=== PATIENT | male | born 1960 | race Caucasian/White ===

== ENCOUNTER → 2019-06-17 | Day surgery (SDC) | payer BC ==
[~2019-06-17] MED LIST: CHILDREN'S ASPI81 M1 PO; NOHOMEMEDICATIONS; NORCO 5-325 TA1 EAC1 PO
[2019-06-17 09:01] LABS: HEMATOCRIT 40.6 % (42.0-52.0); HEMOGLOBIN 14.1 gm/dL (14.0-18.0); MCH 29.5 pg (26.0-34.0); MCHC 34.7 g/dL (28.0-37.0); MCV 85.2 fL (80.0-100.0); MPV 7.7 fl. (7.2-11.1); RBC 4.77 mil/uL (4.50-6.00); RDW-CV 14.5 % (10.5-14.5); WBC 6.3 thou/uL (4.0-11.0)
[2019-06-17 09:10] LABS: CALCIUM 8.9 mg/dL (8.5-10.1); CREATININE 0.8 mg/dL (0.6-1.3); POTASSIUM 4.1 mmol/L (3.5-5.1)
[2019-06-17 09:22] LABS: ALBUMIN 3.7 g/dL (3.4-5.0); TOTAL BILIRUBIN 0.3 mg/dL (<0.1-1.0); TOTAL PROTEIN 7.6 g/dL (6.4-8.2)
--- NOTE | 2019-06-22 09:47 | OP ---
[address] [address] OPERATIVE REPORT Name: SRAVAN RONDON Room: [facility]#: [id number] Admission: 06/17/19 Attend Phys: Brianna Mak, Discharge: Date of : 58 Report #: [id number] THIS REPORT FOR: //name// CC: [facility] physician/PCP Brianna Mak DATE OF SERVICE: 06/17/2019 SURGEON: Brianna Mak DPM. SUPERVISOR FACEPIECE LINE: None. 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 PATHOLOGY: 1. Peroneal tendon, right ankle. 2. Ganglion cyst, right ankle, soft tissue and bone sent for pathology. ANESTHESIA TYPE: General with popliteal block and local with popliteal block. HEMOSTASIS: Pneumatic thigh tourniquet set at 300 mmHg. ESTIMATED BLOOD LOSS: 10 mL. MATERIALS USED: 2-0 Prolene, 2-0 Vicryl, 4-0 Vicryl, 4-0 nylon, Arthrex 2-0 SutureTak and Arthrex cancellous DBM 3 mL. INJECTABLES: DBM. COMPLICATIONS: None. PROCEDURE IN DETAIL: The patient was brought into the operating room and placed on the operating room table in the supine position. Two grams of Ancef was then administered intravenously for prophylaxis. After adequate sedation was obtained, the patient was then placed in a lateral decubitus position with adequate padding and pillow placement. Once this was done, the pneumatic thigh tourniquet was also placed about the patient's right thigh with adequate padding noted. Once this was completed, the patient's right foot and leg were then prepped and draped in the usual aseptic fashion. Upon exsanguination of the right foot and ankle with an Esmarch bandage, the pneumatic [place] [address] OPERATIVE REPORT Name: ALCONSRAVAN Garret Room: [facility]#: [id number] Admission: 06/17/19 Attend Phys: Brianna Mak, Discharge: Date of : 58 Report #: [id number] then inflated to 300 mmHg. Attention was then directed to the lateral aspect of the patient's right ankle where an approximately 6 cm curvilinear incision was then placed approximately 1 cm just distal to the lateral malleolus coursing along and anterior to the peroneal tendons. The incision was then carried down through the subcutaneous layers utilizing a mixture of blunt and sharp dissection. It is important to note that the sural nerve was identified at this time and retracted distally. It is also important to note that there was an extensive amount of large veins throughout, where in which bleeding was controlled via cauterization as well as tying off connections utilizing silk ties. Once bleeding was controlled, at this time, further dissection down to the peroneal tendons was then performed and an incision into the peroneal sheath was done at this time. Both peroneal tendons were identified at this time and upon releasing the paratenon, an abundant amount of dhaval-colored synovial fluid escaped within the tendon as well as the large Rudolph through bucket handle tear of the peroneus brevis tendon at the level of the lateral malleolus was identified at this time. It is also important to note that there was thickening and yellow discoloration of the peroneus brevis tendon as well and this portion of the tendon was debrided away and sent for pathology for further identification at this time. Further examination of both the peroneus brevis and peroneus longus tendons, at this time, showed no further tearing or thickening at this time, so the peroneus brevis tendon was then re-tubularized utilizing 2-0 Prolene in a running suture fashion. It is also important to note that the extensor retinaculum was also released using sharp dissection during this time and allowed for the full range of motion of peroneal tendons to be tested at this time. It is also important to note that the peroneal tendons were noted to glide smoothly under the lateral malleolus at this time and the area was then flushed utilizing sterile normal saline. Next, at this time, attention was then redirected to the lateral malleolus where there was noted to have hypertrophy along the lateral aspect at this time and was noted to be uneven distribution. The periosteum along the lateral malleolus was further dissected down to fully expose the lateral and anterior portion and to allow for full extent of the bone tumor. There was mild discoloration along the hypertrophied aspect of the lateral malleolus where the bone cyst was noted to be located. So at this time, a window was then performed along the anterolateral aspect of the lateral malleolus utilizing a bone saw into the medullary canal. This bone window was then removed at this time and then utilizing a curette it was noted that the lateral wall of the lateral malleolus was significantly weakened at this time, involved the bone cyst, so this was also removed and sent for pathology for further evaluation. The contents were noted to be clear and highly viscous consistent with a ganglion cyst and this material was also curetted out and sent for gross pathology at this time. Once adequate hard viable bone was reached at this time, a bony deficit of approximately almost 2 cm in length and 1 [place] [address] OPERATIVE REPORT Name: ALCONSRAVAN Garret Room: [facility].#: [id number] Admission: 06/17/19 Attend Phys: Brianna Mak, Discharge: Date of : 58 Report #: [id number] aspect of the lateral malleolus and it is important to note that the ganglion cyst appeared to be multilobular within the lateral malleolus. Due to the extensive removal of the lateral wall, it is important to note that the posterior aspect where the peroneal tendons will be used to glide and the wall was cartilaginous and remained intact throughout. However, due to the location of the cyst and removal of the cortical wall, it was unable to use a tricortical graft and be able to fixate in place. So at this time, a cancellous DBM was then used in order to fill the void at this time and leveled out the remainder of the bone deficit. Approximately 2 mL of cancellous DBM was utilized at this time. This was allowed to set and then the site was copiously irrigated with sterile normal saline. Next, the peritenon of the peroneal tendons was then reapproximated as well as the periosteum along the lateral malleolus. It is also important to note that the SutureTak was also utilized at this time to reapproximate the extensor retinaculum. At this time, this was done approximately 1.5 cm proximal to the cystic area of the lateral cuneiform and this was performed according to product guidelines. The deep tissue structures continued to be closed utilizing 2-0 Vicryl and the skin and subcutaneous tissue reapproximated utilizing a mixture of 2-0 Vicryl, 4-0 Vicryl and a 3-0 nylon in a running interlocking stitch fashion. It is also important to note that prior two skin closures, the pneumatic ankle tourniquet was released at this time and bleeding to the site was noted to be controllable without early signs of hematoma or drainage. So at this time, the skin was then reapproximated and the right foot was then cleansed and dressed with Adaptic, 4 x 4 gauze, Kerlix and tape. The patient's right foot and ankle were then placed in a fiberglass below the knee cast in a neutral slightly everted position at the ankle to reduce tension along the peroneal tendons. The patient tolerated the procedure and anesthesia well and was transferred from the operating room to the recovery room with vital signs stable and neurovascular status intact to the right lower extremity. DISPOSITION: The patient is to be nonweightbearing for 6 weeks postoperative and was encouraged to call with any questions or concerns. The patient was also instructed to take one baby aspirin twice daily for DVT prevention. <ELECTRONICALLY SIGNED> By: Brianna Mak DPM 06/22/19 0947 [id number] [id number] Mak DPM /jayy
--- NOTE | 2019-06-22 16:06 | PATH ---
[facility] [address] [place] [address] PATHOLOGY RPT PROCEDURE Name: SRAVAN MATHEW Room: [facility]..#: [id number] Admission: 06/17/19 Date of : 58 Discharge: Report #: [id number] Path Case #: [id number] [facility] Accession Number: [id number] . 01 Material submitted: . PART A: ankle - GANGLION CYST, RIGHT ANKLE. Modifiers: right PART B: foot - PERINEAL TENDON RIGHT FOOT. Modifiers: right . 01 Clinical history: . Neoplasm perineal tendon with tear . 02 Diagnosis: A. 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 . B. Submitted as "perineal" (peroneal) tendon right foot: - Benign fibrovascular and tendinous tissues and synovial tissues with mild chronic inflammation and fibrosis. . (LEX:arianna; 06/22/2019) MBAliya 06/22/2019 1423 Local . 02 Electronically signed: . Daniel Wilkins MD, Pathologist NPI- [id number] . 01 Gross description: . A. The specimen is received in formalin, labeled "Sravan Mathew, ganglion cyst". The site is verified on the problem specimen form as, "right ankle". Received are multiple segments of pale kumari to red-kumari soft tissue admixed with fragments of bone measuring 2.8 x 2.5 x 0.4 cm in aggregate dimensions. The specimen is filtered and entirely submitted in cassette A1, following decalcification. . B. The specimen is received in formalin, labeled "Sravan Mathew, perineal tendon R foot". Received are multiple segments of pale kumari fibrous tissue measuring 4.0 x 2.1 x 0.5 cm in aggregate dimensions. The specimen is submitted representatively in cassette B1. (CAA; 06/20/2019) QAC/QAC 06/20/2019 1627 Local . 02 Pathologist provided ICD-10: M67.471, M65.871 . 02 CPT . 698651, [id number], [id number] [place] [address] PATHOLOGY RPT PROCEDURE Name: SRAVAN MATHEW Room: [facility].#: [id number] Admission: 06/17/19 Date of : 58 Discharge: Report #: [id number] Path Case #: [id number] Specimen Comment: A courtesy copy of this report has been sent to [phone] Specimen Comment: Report sent to Performed at: [address], [place], [place] [id number] MD Endy Dubois MD Phone: [phone] Performed at: 02 [facility] [address], [place], [place] [id number] MD Daniel Wilkins MD Phone: [phone]
== END | disposition home or self-care (01) ==
LOC: M.SUR 06:27
PROVIDERS: Podiatrist
DX: S86.311A Strain of muscle(s) and tendon(s) of peroneal muscle group at lower leg level, right leg, initial encounter (principal); M67.471 Ganglion, right ankle and foot; M65.871 Other synovitis and tenosynovitis, right ankle and foot; M76.71 Peroneal tendinitis, right leg; M25.571 Pain in right ankle and joints of right foot; Z98.890 Other specified postprocedural states; Z79.82 Long term (current) use of aspirin; Z79.891 Long term (current) use of opiate analgesic; X58.XXXA Exposure to other specified factors, initial encounter; Y93.89 Activity, other specified; Y92.89 Other specified places as the place of occurrence of the external cause; Y99.8 Other external cause status